=== PATIENT | male | born 2005 | race Caucasian/White ===

== ENCOUNTER 2024-03-30 13:06 | Emergency (ER) | payer MEDICAID ==
[~2024-03-30] VITALS: Ht 180.3 cm; Wt 68.0 kg
[2024-03-30 13:15] VITALS: BP_SYST 130; PULSE 89; RESP 18; TEMP 98.8; O2SAT 100
[2024-03-30] MEDS ORDERED: ACYC400T19 PO (15:39)
[2024-03-30] MEDS ORDERED: PRED20TA PO (15:39)
[2024-03-30 16:31] VITALS: BP_SYST 130; PULSE 89; RESP 18; TEMP 98.8; O2SAT 100
== END 2024-03-30 15:52 | disposition home or self-care (01) ==
LOC: SED 13:06
DX: G51.0 Bell's palsy (principal)
CPT/HCPCS: 70450-TC; 99284